=== PATIENT | female | born 1985 | race Caucasian/White ===

== ENCOUNTER 2016-07-25 21:20 | Emergency (ER) | payer OTHER ==
[~2016-07-25 21:20] MED LIST: AUGMENTIN 875/125MG PO; NAPROXEN500 M1 PO; NO MEDICATIONS; PROMETHAZINE D118 ML; VIBRAMYCIN100 M1
[2016-07-25] MEDS ORDERED: ZOFRAN ODT4 M1 (21:27)
[2016-07-25] MEDS ORDERED: PROBIOTIC1 EAC3 PO (21:28)
== END 2016-07-25 21:29 | disposition home or self-care (01) ==
LOC: SED 21:20
DX: R11.2 Nausea with vomiting, unspecified (principal); R19.7 Diarrhea, unspecified; R10.9 Unspecified abdominal pain; Z88.6 Allergy status to analgesic agent; Z79.899 Other long term (current) drug therapy; F17.210 Nicotine dependence, cigarettes, uncomplicated
CPT/HCPCS: 99283